=== PATIENT | female | born 1955 | race Caucasian/White ===

== ENCOUNTER 2019-02-10 12:13 | Emergency (ER) | payer BC, OTHER ==
[~2019-02-10] VITALS: Ht 162.6 cm; Wt 80.0 kg
[2019-02-10 12:18] VITALS: Ht 162.6 cm; Wt 80.0 kg
[2019-02-10] MEDS ORDERED: morphine 4 MG/ML VIAL IV STA (15:53)
[2019-02-10] MEDS ORDERED: SOD CHLORIDE 0.9% 1,000 ML IV STA (15:53)
[2019-02-10] MEDS ORDERED: ONDANSETRON 4 MG INJ IV STA (15:53)
[2019-02-10] MEDS ORDERED: IOHEXOL 14.3 MG(I)/ML (ADULT) BTL PO ONE (16:00)
[2019-02-10] MEDS ORDERED: PANT40TA4 PO (16:56)
[2019-02-10] MEDS ORDERED: LORA-441 PO (16:57)
[2019-02-10] MEDS ORDERED: TRAM50TA PO (16:57)
--- NOTE | 2019-02-10 16:59 | ERD ---
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 She had associated nausea but no vomiting. Last bowel movement was earlier this morning and was small. Nonbloody, no melena. No associated fevers or chills. No dysuria. No chest pain or shortness of breath. Currently her pain is better than it was this morning. She took a tramadol prior to arrival. Currently she rates her pain as an 8 out of 10. No alleviating or exacerbating factors. The pain is constant. ROS All systems reviewed and are negative except as per history of present illness. Medications Home Meds Reported Medications Lorazepam* (Ativan*) 0.5 Mg Tablet, 0.5 MG PO HS PRN for NEEDED, #30 TAB 02/10/19 Tramadol Hcl* (Ultram*) 50 Mg Tablet, 25 MG PO NEEDED PRN for PAIN, TAB 02/10/19 Pantoprazole* (Pantoprazole*) 40 Mg Tablet.dr, 40 MG PO AC BREAKFAST, TAB 02/10/19 Allergies Allergies: Coded Allergies: Penicillins (Unverified Allergy, Unknown, 02/10/19) PMhx/Soc History of Surgery: Yes (WHIPPLE SURGERY) Anesthesia Reaction: No Hx Neurological Disorder: No Hx Respiratory Disorders: No Hx Cardiac Disorders: No Hx Psychiatric Problems: No Hx Miscellaneous Medical Probl: Yes (GI tumor benign) Hx Alcohol Use: No Hx Substance Use: No Hx Tobacco Use: No Smoking Status: Never smoker FmHx Family History: No diabetes Physical Exam Vitals Vital Signs Date Temp Pulse Resp B/P (MAP) Pulse Ox O2 O2 Flow FiO2 Time Delivery Rate 02/10/19 97.5 82 18 109/62 98 Room Air 19:02 (78) 02/10/19 97.5 61 18 106/70 98 Room Air 17:57 (82) 02/10/19 97.5 71 20 115/61 98 Room Air 17:05 (79) 02/10/19 97.5 56 20 109/61 98 Room Air 15:47 (77) 02/10/19 97.5 89 20 120/69 98 12:18 (86) Physical Exam Const: No acute distress Head: Atraumatic Eyes: Normal Conjunctiva ENT: Normal External Ears, Nose and Mouth. Neck: Full range of motion. No meningismus. Resp: Clear to auscultation bilaterally Cardio: Regular rate and rhythm, no murmurs Abd: Midline abdominal scar noted, well-healed. Soft, mild tenderness in the mid abdomen, upper and lower with no rebound or guarding. Non distended. Hypoactive bowel sounds Skin: No petechiae or rashes Back: No midline or flank tenderness Ext: No cyanosis, or edema Neur: Awake and alert Psych: Normal Mood and Affect Result Diagram: 02/10/19 1545 02/10/19 1545 Results 24 hrs Laboratory Tests Test 02/10/19 15:45 02/10/19 15:48 White Blood Count 7.9 10^3/ul Red Blood Count 4.83 10^6/ul Hemoglobin 13.2 g/dl Hematocrit 41.2 % Mean Corpuscular Volume 85.3 fl Mean Corpuscular Hemoglobin 27.3 pg Mean Corpuscular Hemoglobin Concent 32.0 g/dl Red Cell Distribution Width 14.2 % Platelet Count 358 10^3/UL Mean Platelet Volume 10.3 fl Immature Granulocytes % 0.300 % Neutrophils % 70.6 % Lymphocytes % 22.7 % Monocytes % 5.4 % Eosinophils % 0.4 % Basophils % 0.6 % Nucleated Red Blood Cells % 0.0 /100WBC Immature Granulocytes # 0.020 10^3/ul Neutrophils # 5.6 10^3/ul Lymphocytes # 1.8 10^3/ul Monocytes # 0.4 10^3/ul Eosinophils # 0.0 10^3/ul Basophils # 0.1 10^3/ul Nucleated Red Blood Cells # 0.0 10^3/ul Urine Color YELLOW Urine Clarity CLEAR Urine pH 5.0 Urine Specific [place] 1.013 Urine Ketones 1+ mg/dL Urine Nitrite NEGATIVE mg/dL Urine Bilirubin NEGATIVE mg/dL Urine Urobilinogen NEGATIVE mg/dL Urine Leukocyte Esterase NEGATIVE Dominic/ul Urine Hemoglobin NEGATIVE mg/dL Urine Glucose NEGATIVE mg/dL Urine Total Protein NEGATIVE mg/dl Sodium Level 142 mmol/L Potassium Level 3.7 mmol/L Chloride Level 104 mmol/L Carbon Dioxide Level 26 mmol/L Anion Gap 12 Blood Urea Nitrogen 16 mg/dl Creatinine 0.76 mg/dl Est Glomerular Filtrat Rate mL/min > 60 mL/min Glucose Level 86 mg/dl Calcium Level 9.9 mg/dl Total Bilirubin 0.5 mg/dl Direct Bilirubin 0.00 mg/dl Indirect Bilirubin 0.5 mg/dl Aspartate Amino Transf (AST/SGOT) 56 IU/L Alanine Aminotransferase (ALT/SGPT) 80 IU/L Alkaline Phosphatase 361 IU/L Total Protein 7.8 g/dl Albumin 4.5 g/dl Globulin 3.30 g/dl Albumin/Globulin Ratio 1.36 Lipase 43 U/L Bedside Urine pH (LAB) 5.5 Bedside Urine Protein (LAB) Negative Bedside Urine Glucose (UA) Negative Bedside Urine Ketones (LAB) 2+ Bedside Urine Blood Negative Bedside Urine Nitrite (LAB) Negative Bedside Urine Leukocyte Esterase (L Negative Current Medications Medications Dose Sig/Deb Start Time Status Last (Trade) Ordered Route PRN Stop Time Admin Dose Reason Admin Sodium 1,000 ml @ Q1H STAT 02/10/19 DC 02/10/19 Chloride 1,000 mls/hr IV 15:53 02/10/19 16:09 16:52 Morphine 4 mg ONCE STAT 02/10/19 DC 02/10/19 Sulfate IV 15:53 02/10/19 16:09 (morphine) 15:55 Ondansetron 4 mg ONCE STAT 02/10/19 DC 02/10/19 HCl (Zofran IV 15:53 02/10/19 16:09 Inj) 15:55 Iohexol Adult GIVE PRIOR 02/10/19 DC 02/10/19 ((Gastrografi Formulation TO CT ONCE 16:00 02/10/19 17:28 n (Ple... PO 16:01 therapeutic equivalent)) Iohexol 150 ml STK-MED 02/10/19 DC (Omnipaque ONCE .ROUTE 17:20 02/10/19 300mg/ ml) 17:21 Sodium 100 ml @ ud STK-MED 02/10/19 DC Chloride ONCE .ROUTE 17:20 02/10/19 17:21 IV Flush 10 ml STK-MED 02/10/19 DC (NS 10 ml) ONCE .ROUTE 17:20 02/10/19 17:21 Procedures/MDM EMERGENT LABS AND DIAGNOSTIC STUDIES: Lab Results above were reviewed and interpreted by me. CBC: no anemia or evidence of infection CMP: Mild transaminitis with elevated alk phos. No evidence of clinically significant electrolyte abnormality, acidosis, renal failure, hypoglycemia Lipase: no evidence of pancreatitis UA: no evidence of infection Radiology Results as interpreted by Radiology below were reviewed by Dana Adamson MD: CT abdomen and pelvis pending Initial Nursing notes reviewed. Previous Medical Records requested via the Electronic Health Record. EMERGENCY DEPARTMENT COURSE / MEDICAL DECISION MAKING: Patient complains of cramping abdominal pain with associated nausea. Vitals are unremarkable and she is afebrile. differential includes but is not limited to bowel obstruction, pancreatitis, colitis. Doubt cardiopulmonary pathology. Labs showed evidence of mild transaminitis and elevated alk phos. Patient's baseline labs are unknown. CT with oral contrast was ordered and is pending. Patient will be signed out to the oncoming ED physician. Patient symptoms are well controlled with morphine and antiemetics. Of note, her [facility] pancreatic surgeon is Dr. Juanpablo [phone] Departure Diagnosis: Primary Impression: Abdominal pain Abdominal location: generalized Qualified Codes: R10.84 - Generalized abdominal pain MARIA LUISA ADAMSON MD Feb 10, 2019 16:59
[2019-02-10] MEDS ORDERED: SOD CHLORIDE 0.9% 100 ML ONE (17:20)
[2019-02-10] MEDS ORDERED: IOHEXOL 300MG/ML 150 ML BTL ONE (17:20)
[2019-02-10 21:44] VITALS: BP 95/64; PULSE 74; RESP 14
== END 2019-02-10 22:00 | disposition home or self-care (01) ==
LOC: E/R 12:13
DX: R10.84 Generalized abdominal pain (principal); Z86.011 Personal history of benign neoplasm of the brain
CPT/HCPCS: 36415; 74177; 80053; 81003; 83690; 85025; 96374; 96375; 99285; J2270; J2405; J7030; Q9967